=== PATIENT | female | born 1960 | race Caucasian/White ===

== ENCOUNTER 2019-05-06 12:38 | Day surgery (SDC) | payer OTHER ==
[~2019-05-06] VITALS: Ht 157.5 cm; Wt 71.7 kg
[~2019-05-06 12:38] MED LIST: ALBU8.5H8 INH; ASPI-817 PO; BENA20TA4 PO; BISOPROLOL; CLONAZEPAM; proctozone
[2019-05-06 13:16] VITALS: Ht 157.5 cm; Wt 71.7 kg
[2019-05-06 13:28] VITALS: BP 145/73; PULSE 66; RESP 20
--- NOTE | 2019-05-06 14:11 | PREAC ---
Date/Time of Note Date/Time of Note DATE: 05/06/19 TIME: 14:09 Anesthesia Eval and Record Evaluation Time Pre-Procedure Interview DATE: 05/06/19 TIME: 14:09 Age 58 Sex female NPO: 8 hrs Preoperative diagnosis REFLUX ESOPHAGITIS, SCREENING Planned procedure EGD, COLONOSCOPY Past Medical History Past Medical History: Includes Cardio: HTN Pulm: Asthma Surgery & Anesthesia Issues No known issue Meds Anticoagulation: No Beta Eliud within 24 hr: No Reason Beta Eliud not given: Pt. not on B-Eliud Reported Medications [Clonazepam] No Conflict Check 05/06/19 [Bisoprolol] No Conflict Check 05/06/19 Aspirin* (Aspirin* EC) 81 Mg Tablet.dr, 81 MG PO DAILY, TAB 05/06/19 Albuterol Sulfate* (Proair HFA*) 8.5 Gm Hfa.aer.ad, 2 PUFF INH Q6, #1 INHALER 11/22/15 Benazepril Hcl* (Benazepril Hcl*) 20 Mg Tablet, 20 MG PO DAILY, #30 TAB 11/22/15 Discontinued Reported Medications [proctozone] No Conflict Check, 1 11/22/15 Meds reviewed: Yes Allergies Coded Allergies: Sulfa (Sulfonamide Antibiotics) (Verified Allergy, Unknown, 10/24/15) morphine (Verified Adverse Reaction, Mild, fever, vomiting, 11/22/15) Allergies Reviewed: Yes Labs/Studies Labs Reviewed: Reviewed by anesthesiologist test: N/A Pre-procedure Exam Last vitals Vital Signs Date Temp Pulse Resp B/P (MAP) Pulse Ox O2 O2 Flow FiO2 Time Delivery Rate 05/06/19 98.1 66 20 145/73 98 Room Air 13:28 (97) Airway: Adequate mouth opening, Adequate thyromental dist Mallampati: Mallampati II Teeth: Normal Lung: Normal Heart: Normal ASA Physical Status ASA physical status: 2 Emergency: None Planned Anesthetic General/MAC: MAC Planned Pain Management Parenteral pain med Pre-operative Attestations Prior to commencing anesthesia and surgery, the patient was re-evaluated, there was verification of: *The patient's identity *The results of appropriate recent lab work and preoperative vital signs *The above evaluation not changing prior to induction *Anesthetic plan, risk benefits, alternative and complications discussed with pa tient/family; questions answered; patient/family understands, accepts and wishes to proceed. Alexis Xiong M.D. May 06, 2019 14:11
[2019-05-06] MEDS ORDERED: PROPOFOL 40 ML ONE (14:40)
[2019-05-06] MEDS ORDERED: LIDOCAINE 2% (SDV) 5 ML INJ ONE (14:40)
[2019-05-06] MEDS ORDERED: FENTAnyl 50 MCG/ML VIAL ONE (14:41)
[2019-05-06] MEDS ORDERED: DEXAMETHASONE 4 MG/ML 1 ML INJ ONE (14:49)
--- NOTE | 2019-05-06 15:24 | PAC ---
Date/Time of Note Date/Time of Note DATE: 05/06/19 TIME: 15:24 Post-Anesthesia Notes Post-Anesthesia Note Last documented vital signs Vital Signs Date Temp Pulse Resp B/P (MAP) Pulse Ox O2 O2 Flow FiO2 Time Delivery Rate 05/06/19 98.1 66 20 145/73 98 Room Air 13:28 (97) Activity: WNL Respiratory function: WNL Cardiovascular function: WNL Mental status: Baseline Pain reasonably controlled: Yes Hydration appropriate: Yes Nausea/Vomiting absent: Yes Alexis Xiong M.D. May 06, 2019 15:24
[2019-05-06 15:53] VITALS: BP 142/65; RESP 16
== END 2019-05-06 16:12 | disposition home or self-care (01) ==
LOC: GIL 12:38
PROVIDERS: ATTEND Internal Medicine Gastroenterology
DX: Z12.11 Encounter for screening for malignant neoplasm of colon (principal); K64.8 Other hemorrhoids; D12.5 Benign neoplasm of sigmoid colon; K21.9 Gastro-esophageal reflux disease without esophagitis
CPT/HCPCS: 43239; 45380; 88305; 88312; J3010; J1100